=== PATIENT | female | born 1995 | race Caucasian/White ===

== ENCOUNTER 2021-09-21 15:08 | Emergency (ER) | payer MEDICAID ==
[~2021-09-21] VITALS: Ht 157.5 cm; Wt 90.0 kg
[2021-09-21 15:18] VITALS: BP 124/74
[2021-09-21] MEDS ORDERED: ketorolac tromethamine 15mg/ml inj. IM ONE (16:10)
== END 2021-09-21 16:53 | disposition home or self-care (01) ==
LOC: ER 15:09
DX: M25.571 Pain in right ankle and joints of right foot (principal)
CPT/HCPCS: 29515; 73610; 96372; 99283; J1885; L1930

== ENCOUNTER 2023-09-27 13:01 | Outpatient (CLI) | payer MEDICAID | END 2023-09-27 23:59 | disposition home or self-care (01) | LOC: MRI 13:01 | PROVIDERS: ATTEND Podiatrist Foot & Ankle Surgery | DX: M72.2 Plantar fascial fibromatosis (principal); M24.572 Contracture, left ankle; M79.672 Pain in left foot | CPT/HCPCS: 73721 ==